=== PATIENT | female | born 1990 | race Caucasian/White ===

== ENCOUNTER → 2017-06-23 | Outpatient (CLI) | payer OTHER | END | disposition home or self-care (01) | LOC: CDC 08:27 | DX: R94.31 Abnormal electrocardiogram [ECG] [EKG] (principal) | CPT/HCPCS: 93000 ==

== ENCOUNTER → 2017-08-24 | Outpatient (CLI) | payer OTHER ==
[~2017-08-24] VITALS: Ht 167.6 cm; Wt 87.0 kg
[~2017-08-24] MED LIST: ASPIRIN81 M2 PO; GLYBURIDE2.5 MG PO; OMEPRAZOLE20 MG PO; PRENATAL TABLE1 EAC3 PO
[2017-08-24 08:05] VITALS: BP 140/78
== END | disposition home or self-care (01) ==
LOC: IVINF 07:58
DX: Z31.82 Encounter for Rh incompatibility status (principal); Z3A.28 28 weeks gestation of pregnancy
CPT/HCPCS: 96372; J2790

== ENCOUNTER 2017-11-07 17:00 | Inpatient (IN) | payer OTHER ==
[~2017-11-07] VITALS: Ht 167.6 cm; Wt 91.1 kg
[2017-11-07] VITALS (7 sets, daily range): BP systolic 115–134; BP diastolic 67–86
[2017-11-07 17:59] LABS: EOSINOPHIL (%) 1.3 % (0-5); EOSINOPHIL COUNT 0.2 K/uL (0-0.3); HEMATOCRIT 29.1 % (36.0-46.0); IMMATURE GRANULOCYTE (%) 0.6 % (0.0-0.7); IMMATURE GRANULOCYTE COUNT 0.1 K/uL; INSTRUMENT ABS NEUTROPHIL CT 9.6 K/uL; LYMPHOCYTE COUNT 3.7 K/uL (1.0-2.8); MCH 27.1 PG (29.0-34.0); MCHC 32.3 G/DL (30.0-36.0); MCV 83.9 FL (83-99); MEAN PLAT.VOLUME 11.2 uM^3 (9.5-12.4); MONOCYTE (%) 7.2 % (3-12); MONOCYTE COUNT 1.1 K/uL (0-0.8); NEUTROPHIL (%) 65.3 % (45-76); NEUTROPHIL COUNT 9.6 K/uL (1.8-6.4); PLATELET COUNT 323 K/uL (156-360); RBC DIS.WIDTH-CV 13.7 % (11.8-14.6); RBC DIS.WIDTH-SD 41.8 % (39-53); RED BLOOD COUNT 3.47 M/uL (3.80-5.20); WHITE BLOOD COUNT 14.7 K/uL (4.1-10.2)
[2017-11-07 19:34] LABS: ANION GAP 12 MEQ/L (2-14); CHLORIDE 108 MEQ/L (99-109); POTASSIUM 3.9 MEQ/L (3.7-5.4); SAMPLE HEMOLYSIS CHECK 0; SAMPLE ICTERIC CHECK 0; SAMPLE LIPEMIA CHECK 0; SODIUM 139 MEQ/L (136-147); TOTAL BILIRUBIN 0.3 MG/DL (0.0-1.0)
[2017-11-07 19:40] LABS: ALKALINE PHOSPHATASE 176 IU/L (3-129); GFR ESTIMATE (CALCULATED) > 59 mL/min/; GLUCOSE 108 mg/dL (70-99); UREA NITROGEN (BUN) 9 mg/dL (9-23)
[2017-11-08] VITALS (21 sets, daily range): BP systolic 108–146; BP diastolic 72–91
[2017-11-08 06:20] LABS: POINT-OF-CARE METER ID UU13113801
[2017-11-08 10:58] LABS: POINT-OF-CARE METER ID UU13113801
[2017-11-08 14:47] LABS: POINT-OF-CARE METER ID UU13113801
[2017-11-08 18:20] LABS: POINT-OF-CARE METER ID UU13113801
[2017-11-09] VITALS (32 sets, daily range): BP systolic 123–146; BP diastolic 72–95
[2017-11-09 02:47] LABS: POINT-OF-CARE METER ID UU13113801
[2017-11-09 12:14] LABS: POINT-OF-CARE METER ID UU13113801
[2017-11-09] MEDS ORDERED: IBUPROFEN800 MG PO (20:47)
[2017-11-09 21:23] LABS: POINT-OF-CARE METER ID UU13113692
[2017-11-10 07:00] VITALS: BP 109/72
[2017-11-10 14:20] VITALS: BP 122/88
[2017-11-10 22:55] VITALS: BP 133/79
[2017-11-11 07:00] VITALS: BP 117/81
== END 2017-11-11 14:00 | disposition home or self-care (01) | DRG 775 ==
LOC: LDRP-OP → 2WEST 17:02 → LDRP-OP 12-15 12:18
PROVIDERS: Nurse Practitioner; Obstetrics & Gynecology
DX: O24.429 Gestational diabetes mellitus in childbirth, unspecified control (principal); O99.214 Obesity complicating childbirth; O69.81X0 Labor and delivery complicated by cord around neck, without compression, not applicable or unspecified; K21.9 Gastro-esophageal reflux disease without esophagitis; O99.62 Diseases of the digestive system complicating childbirth; E66.9 Obesity, unspecified; D50.9 Iron deficiency anemia, unspecified; O99.02 Anemia complicating childbirth; J00 Acute nasopharyngitis [common cold]; Z3A.39 39 weeks gestation of pregnancy; Z37.0 Single live birth; Z68.30 Body mass index [BMI] 30.0-30.9, adult
CPT/HCPCS: 80053; 82948; 83030; 85025; 86850; 86900; 86901; C1755; G0378; J0595; J2790; J2795; J3010; J7120; Q0169